=== PATIENT | female | born 1985 | race American Indian/Alaskan Native ===

== ENCOUNTER 2019-07-08 22:36 | Emergency (ER) | payer SELFPAY ==
[2019-07-08 22:46] VITALS: BP 117/73
--- NOTE | 2019-07-08 23:48 | Emergency Department Report ---
HPI - General Chief Complaint: Overdose Time Seen by Provider: 07/08/19 23:36 - HPI HPI: 34-year-old female presents to the emergency department with complaint of an accidental overdose of diphenhydramine. The patient has a history of anxiety and insomnia. She usually takes an [id number] sleep aid that is 25 mg of diphenhydramine per pill and she takes 4 of them at bedtime. However she recently bought a different brand and later realized that the new brand of sleep aid was 50 mg of diphenhydramine. She took a total of about 200 mg about 1 hour prior to arrival. The patient started feeling like her heart was skipping beats and she felt faint so she called EMS. She was checked out and they said everything was fine so she did not get transported to the emergency department at that time. However the symptoms worsened so she came in to be seen. At the time of my examination the patient says she is asymptomatic and asking to leave. ED Past Medical Hx - Past Medical History Previous Medical History?: Yes Hx Psychiatric Treatment: Yes (Anxiety, Insomnia) - Surgical History Past Surgical History?: Yes Additional Surgical History: , Ovarian cysts - Social History Smoking Status: Never Smoker Substance Use Type: None ED Review of Systems ROS: Stated complaint: ACCIDENTAL OVERDOSE Other details as noted in HPI Comment: All other systems reviewed and negative Constitutional: denies: chills, fever Respiratory: denies: cough, shortness of breath Cardiovascular: palpitations. denies: chest pain Gastrointestinal: denies: abdominal pain, vomiting Musculoskeletal: denies: back pain, arthralgia Skin: denies: rash, lesions Neurological: other (dizziness). denies: headache Physical Exam - Physical Exam Vital Signs: Vital Signs 07/08/19 22:41 Temperature 99.0 F Pulse Rate 90 Respiratory 18 Rate Blood Pressure 117/73 O2 Sat by Pulse 100 Oximetry Physical Exam: GENERAL: The patient is well-developed well-nourished. HEENT: Normocephalic. Atraumatic. Patient has moist mucous membranes. EYES: Extraocular motions are intact. NECK: Supple. Trachea is midline. CHEST/LUNGS: Clear to auscultation. There is no respiratory distress noted. HEART/CARDIOVASCULAR: Regular. There is no tachycardia. There is no gallop rub or murmur. ABDOMEN: There is no abdominal distention. SKIN: Skin is warm and dry. NEURO: The patient is awake, alert, and oriented. The patient is cooperative. The patient has no focal neurologic deficits. The patient has normal speech and gait. MUSCULOSKELETAL: There is no tenderness or deformity. There is no evidence of acute injury. ED Course Vital Signs 07/08/19 22:41 Temperature 99.0 F Pulse Rate 90 Respiratory 18 Rate Blood Pressure 117/73 O2 Sat by Pulse 100 Oximetry ED Medical Decision Making - Medical Decision Making This patient presented to the emergency department after an accidental overdose of diphenhydramine. This was a mistake regarding a recent purchase of the different brand of the diphenhydramine and the patient had no intention of overdose or any suicidal ideations. The patient initially came in after having some palpitations and feeling faint. Her symptoms had resolved by the time she finished triage. Poison control was contacted and recommended some basic blood work, EKG, and monitoring for 4-6 hours to evaluate for the possibility of anticholinergic syndrome. However the patient refused any blood work, EKG, or any further workup. She says that she is feeling fine, at her baseline, and does not have any insurance and does not want to incur any further bills. Her vital signs have been stable including being afebrile. I explained the need for this monitoring as the patient previously had symptoms that are consistent with an anticholinergic syndrome and that she has not yet gotten out of the window for the half life of this medication. However the patient is awake, alert, oriented and has a normal decision-making capacity. She understands the risks of leaving AGAINST MEDICAL ADVICE at this point but has decided to do so anyways. She understands she can return to the emergency department at any time if she changes her mind about further evaluation, or if she has any acute distress. Critical Care Time: No Critical care attestation.: If time is entered above; I have spent that time in minutes in the direct care of this critically ill patient, excluding procedure time. ED Disposition Clinical Impression: Accidental overdose Qualifiers: Encounter type: initial encounter Qualified Code(s): T50.901A - Poisoning by unspecified drugs, medicaments and biological substances, accidental (unintentional), initial encounter Antihistamines overdose Qualifiers: Encounter type: initial encounter Injury intent: accidental or unintentional Qualified Code(s): T45.0X1A - Poisoning by antiallergic and antiemetic drugs, accidental (unintentional), initial encounter Disposition: - LEFT AGAINST MED ADVICE Is pt being admited?: No Condition: Stable Additional Instructions: Please do not take any further Benadryl/diphenhydramine or any other antihistamines this evening. Return to the emergency department immediately if you change your mind about further evaluation, have a return of your symptoms, or with any acute distress. Please take medications only as prescribed or based on the standard dosing on the back of the bottle or box. Referrals: SHARRI TERRAZAS MD [Primary Care Provider] - 3-5 Days Forms: AMA Form Time of Disposition: 23:48
== END 2019-07-09 | disposition left against medical advice (07) ==
LOC: ED 22:36
DX: T45.0X1A Poisoning by antiallergic and antiemetic drugs, accidental (unintentional), initial encounter (principal); F41.9 Anxiety disorder, unspecified; Z88.5 Allergy status to narcotic agent; Z88.0 Allergy status to penicillin; Y92.89 Other specified places as the place of occurrence of the external cause
CPT/HCPCS: 93005; 93010